=== PATIENT | female | born 2000 | race Caucasian/White ===

== ENCOUNTER 2023-03-10 13:49 | Emergency (ER) | payer BC ==
[~2023-03-10] VITALS: Ht 167.6 cm; Wt 78.0 kg
[2023-03-10 13:53] VITALS: O2SAT 99
[2023-03-10] MEDS ORDERED: AMOXICILLIN/POTASSIUM CLAVULANATE 875/125MG TAB PO STA (14:25)
[2023-03-10] MEDS ORDERED: ACETAMINOPHEN 325MG TABLET PO ONE (14:30)
[2023-03-10] MEDS ORDERED: IBUPROFEN 400MG TABLET PO ONE (14:30)
[2023-03-10] MEDS ORDERED: LIDOCAINE HCL/EPINEPHRINE 1%-EPI 1:100,000 20 ML VIAL INFIL ONE (14:30)
[2023-03-10] MEDS ORDERED: TETANUS, DIPHTHERIA, PERTUSSIS VAC/PF 0.5ML (>10YR OLD) IM ONE (14:30)
[2023-03-10] MEDS ORDERED: BACITRACIN ZINC OINT UDPKT TOP ONE (15:15)
[2023-03-10] MEDS ORDERED: IBUP-2028 MT (17:04)
[2023-03-10] MEDS ORDERED: AMOX1TAB16 MT (17:04)
[2023-03-10] MEDS ORDERED: TOPUD PO (17:04)
[2023-03-10 17:51] VITALS: BP 118/84; PULSE 81; RESP 16; TEMP 97.9
== END 2023-03-10 17:52 | disposition home or self-care (01) ==
LOC: ER 14:13
DX: S51.851A Open bite of right forearm, initial encounter (principal); S51.811A Laceration without foreign body of right forearm, initial encounter; W54.0XXA Bitten by dog, initial encounter; Y93.89 Activity, other specified; Y92.89 Other specified places as the place of occurrence of the external cause; Y99.8 Other external cause status
CPT/HCPCS: 73090; 90715; 12004; 90471; 99284; J3490; Z7610 ×2

== ENCOUNTER 2023-03-12 08:32 | Emergency (ER) | payer BC ==
[~2023-03-12] VITALS: Ht 157.5 cm; Wt 75.0 kg
[~2023-03-12 08:32] MED LIST: AMOX1TAB16 MT; IBUP-2028 MT; TOPUD PO
[2023-03-12 08:39] VITALS: O2SAT 100
[2023-03-12 10:07] VITALS: BP 120/86; PULSE 95; RESP 18; TEMP 97.7
== END 2023-03-12 10:09 | disposition home or self-care (01) ==
LOC: ER 08:32
DX: S51.851D Open bite of right forearm, subsequent encounter (principal); Z48.00 Encounter for change or removal of nonsurgical wound dressing; W54.0XXD Bitten by dog, subsequent encounter
CPT/HCPCS: 99281; Z7610

== ENCOUNTER 2023-03-19 07:44 | Emergency (ER) | payer BC ==
[~2023-03-19] VITALS: Ht 160 cm; Wt 81.0 kg
[2023-03-19 07:51] VITALS: O2SAT 99
[2023-03-19] MEDS ORDERED: BACITRACIN 14GM TUBE TOP ONE (08:15)
[2023-03-19 08:58] VITALS: BP 140/89; PULSE 74; RESP 16; TEMP 98.6
== END 2023-03-19 09:00 | disposition home or self-care (01) ==
LOC: ER 07:44
DX: S41.151D Open bite of right upper arm, subsequent encounter (principal); Z48.02 Encounter for removal of sutures; W54.0XXD Bitten by dog, subsequent encounter
CPT/HCPCS: 99282; Z7610 ×5

== ENCOUNTER 2023-03-28 16:28 | Emergency (ER) | payer BC ==
[~2023-03-28] VITALS: Ht 157.5 cm; Wt 82.0 kg
[2023-03-28 16:50] VITALS: O2SAT 99
[2023-03-28 17:57] VITALS: BP 123/88; PULSE 99; RESP 20; TEMP 98
[2023-03-28] MEDS: BACITRACIN ZINC OINT UDPKT TOP ONE (18:15)
== END 2023-03-28 18:20 | disposition home or self-care (01) ==
LOC: ER 16:28
DX: S51.811D Laceration without foreign body of right forearm, subsequent encounter (principal); W54.0XXD Bitten by dog, subsequent encounter
CPT/HCPCS: 99282